=== PATIENT | male | born 1985 | race Caucasian/White ===

== ENCOUNTER 2022-12-03 18:41 | Emergency (ER) | payer OTHER ==
--- NOTE | 2022-12-03 19:55 | RAD REPORT ---
EXAM DESCRIPTION: CT - Head Brain Wo Cont - 12/03/2022 7:41 pm CLINICAL HISTORY: HEADACHE COMPARISON: No comparisons TECHNIQUE: Noncontrast head CT images were obtained without IV contrast. Multiplanar reformats were generated and reviewed. All CT scans are performed using dose optimization technique as appropriate and may include automated exposure control or mA/KV adjustment according to patient size. FINDINGS: No intracranial hemorrhage, mass, or edema. Midline structures are unremarkable. Ventricular caliber overall within normal, although there is asymmetric size of the lateral ventricle s, larger on the right, likely of low clinical significance. Ruiz-white matter differentiation is preserved, without evidence of acute infarct. No abnormal extra- axial fluid collections. Mastoid air cells are well aerated. Right maxillary sinus mucous retention cyst. No acute bony findings. IMPRESSION: No evidence of an acute intracranial process.
[2022-12-03] MEDS ORDERED: ASPIRIN 81 MG CHEWABLE TABLET ONE (21:04)
[2022-12-03 21:12] LABS: Absolute Lymphocytes (CBC) 4.3 K/uL (0.7-4.9); Hematocrit 43.9 % (39.6-49.0); Lymphocytes % 42.3 % (15.3-44.8); MCV 81.5 fL (80-100); MPV 7.9 fL (7.6-11.3); Platelets 287 thou/uL (152-406); RBC Red Blood Cell Count 5.39 M/uL (4.33-5.43)
[2022-12-03 21:13] LABS: Protime INR 1.01
[2022-12-03 21:27] LABS: Albumin 3.9 g/dL (3.4-5.0); Bilirubin Direct 0.1 mg/dL (0-0.2); Bilirubin Indirect, Calculated 0.4 mg/dL (0.2-0.8); Bilirubin Total 0.5 mg/dL (0.2-1.0); Magnesium 2.1 mg/dL (1.6-2.4); Potassium 3.5 mEq/L (3.5-5.1); Protein, Total 7.9 g/dL (6.4-8.2); Troponin High Sensitivity 4.2 pg/mL (<58.9)
--- NOTE | 2022-12-03 21:45 | RAD REPORT ---
EXAM DESCRIPTION: Laura Single View12/03/2022 9:22 pm CLINICAL HISTORY: headache COMPARISON: CHEST PA AND LAT 2 VIEW dated 01/31/2013 TECHNIQUE: Portable AP view of the chest. FINDINGS: The lungs are clear. No pneumothorax or effusion. The cardiomediastinal contours are unrem arkable. IMPRESSION: No acute cardiopulmonary process.
--- NOTE | 2022-12-03 22:21 | RAD REPORT ---
EXAM DESCRIPTION: CT - Head angio - 12/03/2022 9:46 pm CLINICAL HISTORY: HEADACHE COMPARISON: Head Brain Wo Cont dated 12/03/2022; Neck Angio dated 12/03/2022 TECHNIQUE: Axial CT angiography images of the head was performed with multiplanar and maximum intens ity projection reconstructions. Images performed following intravenous administration of 95mL Isovue 370. All CT scans are performed using dose optimization technique as appropriate and may include automated exposure control or mA/KV adjustment according to patient size. FINDINGS: No evidence of large vessel occlusion. No evidence of aneurysm or dissection flap is detec ana. No flow-limiting stenosis or vascular malformation identified. Antegrade flow is seen in the vertebral arteries. The vertebral arteries are codominant. The visualized dural venous sinuses are grossly patent. IMPRESSION: No evidence of large vessel occlusion or flow-limiting stenosis.
--- NOTE | 2022-12-03 22:24 | RAD REPORT ---
EXAM DESCRIPTION: CT - Neck Angio - 12/03/2022 9:46 pm CLINICAL HISTORY: HEADACHE COMPARISON: No comparisons TECHNIQUE: Axial CT angiography images of the head was performed with multiplanar and maximum intens ity projection reconstructions. Images performed following intravenous administration of 95mL Isovue 370. All CT scans are performed using dose optimization technique as appropriate and may include automated exposure control or mA/KV adjustment according to patient size. Quantification of carotid stenosis, if any, is performed according to NASCET criteria. FINDINGS: A left aortic arch is identified with normal three vessel configuration of the great vesse ls. No significant flow abnormality is seen of the common carotid bilaterally. No significant stenosis is identified involving the cervical segments of both internal carotid arteri es. Normal flow is seen within both vertebral arteries. Mucous retention cyst in the base of the right maxillary sinus. IMPRESSION: No significant flow abnormality of the neck vessels is identified. CAROTID STENOSIS REFERENCE USING NASCET CRITERIA: % ICA stenosis = (1 - narrowest ICA diameter/diameter of distal cervical ICA) x 100. Mild - <50% stenosis. Moderate - 50-69% stenosis. Severe - 70-94% stenosis. Near occlusion - 95-99% stenosis. Occluded - 100% stenosis.
--- NOTE | 2022-12-03 22:35 | ER ---
Nurse's Notes [facility] Name: Bossman Farrell Age: 37 yrs Sex: Male : 1985 Arrival Date: 12/03/2022 Time: 18:41 Bed 5 Private MD: Diagnosis: Headache;Elevated blood-pressure reading, without diagnosis of hypertension;Weakness Presentation: 12/03 19:01 Chief complaint: Patient states: Went to eye doctor yesterday, told they saw what may nj1 look like a mini stroke. Woke up this morning with a headache "i just feel off". Coronavirus screen: Vaccine status: Patient reports receiving the 2nd dose of the covid vaccine. Ebola Screen: Patient denies travel to an Ebola-affected area in the 21 days before illness onset. Initial Sepsis Screen: Does the patient meet any 2 criteria? No. Patient's initial sepsis screen is negative. Does the patient have a suspected source of infection? No. Patient's initial sepsis screen is negative. Risk Assessment: Do you want to hurt yourself or someone else? Patient reports no desire to harm self or others. Onset of symptoms was December 03, 2022. 19:01 Method Of Arrival: Ambulatory [facility] 19:01 Acuity: AAKASH 3 nj1 Historical: - Allergies: 19:04 No Known Allergies; nj1 - PMHx: 19:04 None; nj1 - PSHx: 19:04 None; nj1 - Immunization history:: Client reports receiving the 2nd dose of the Covid vaccine. - Social history:: Smoking status: Patient denies any tobacco usage or history of. Screenin:42 [facility] ED Fall Risk Assessment (Adult) Score/Fall Risk Level 0 - 2 = Low Risk. Abuse jw7 screen: Denies threats or abuse. Denies injuries from another. Nutritional screening: No deficits noted. Tuberculosis screening: No symptoms or risk factors identified. Assessment: 22:41 General: Appears in no apparent distress. Behavior is calm, cooperative. General: jw7 Reports fatigue for. Pain: Denies pain. Neuro: Level of Consciousness is awake, alert, obeys commands, Oriented to person, place, time, situation. Respiratory: Respiratory effort is even, unlabored. Vital Signs: 19:01 BP 139 / 92; Pulse 73; Resp 18; Temp 98.1; Pulse Ox 99% ; Weight 81.65 kg; Height 5 ft. nj1 10 in. ; Pain 3/10; 22:03 BP 142 / 90; Pulse 71; Resp 16 S; Pulse Ox 98% on R/A; jw7 19:01 Body Mass Index 25.83 (81.65 kg, 177.8 cm) nj1 19:01 Pain Scale: Adult [facility] ED Course: 18:46 Patient arrived in ED. im 18:57 Ruth Robins FNP-C is PHCP. snw 18:57 Carlito Roth MD is Attending Physician. snw 19:04 Triage completed. nj1 19:04 Arm band placed on right wrist. nj1 19:43 CT Head Brain wo Cont In Process Unspecified. EDMS 20:40 Sandy Vazquez MD is Attending Physician. snw 20:40 Tucker Dye PA is PHCP. snw 20:55 Basic Metabolic Panel Sent. bc6 20:55 CBC with Diff Sent. bc6 20:55 LFT's Sent. bc6 20:55 Magnesium Sent. bc6 20:55 NT PRO-BNP Sent. bc6 20:55 PT-INR Sent. bc6 20:55 Troponin HS Sent. bc6 20:55 Inserted saline lock: 22 gauge in left wrist, using aseptic technique. Blood collected. bc6 21:24 XRAY Chest (1 view) In Process Unspecified. EDMS 21:29 Zeb Rodriguez, RN is Primary Nurse. rv 21:48 CT Head Angio In Process Unspecified. EDMS 21:[address] In Process Unspecified. EDMS 22:42 Bed in low position. Call light in reach. Side rails up X2. Provided Education on: jw7 discharge teaching. 22:42 No provider procedures requiring assistance completed. IV discontinued, intact, jw7 bleeding controlled, No redness/swelling at site. Pressure dressing applied. Administered Medications: 20:55 Drug: Aspirin PO Chewable Tablet 324 mg Route: PO; nj1 22:43 Follow up: Response: No adverse reaction jw7 Medication: 22:42 VIS not applicable for this client. jw7 Outcome: 22:34 Discharge ordered by . cp 22:42 Discharged to home ambulatory, with family. jw7 22:42 Condition: stable 22:42 Discharge instructions given to patient, Instructed on discharge instructions, follow jw7 up and referral plans. Demonstrated understanding of instructions, follow-up care. 22:43 Patient left the ED. jw7 Signatures: Dispatcher [employer] EDMS Ruth Robins, CAB STARTER-C CAB STARTER-Csnw Tucker Dye PA PA cp Vicente, Ronaldo, RN RN rv Manasa Parker RN RN jw7 Celine Geller 6 Sherri Perez RN RN nj1 Dafne Rivas
--- NOTE | 2022-12-03 22:35 | EDPHYS ---
Physician Documentation [facility] Name: Bossman Farrell Age: 37 yrs Sex: Male : 1985 Arrival Date: 12/03/2022 Time: 18:41 Bed 5 Private MD: ED Physician Sandy Vazquez HPI: 12/03 21:00 This 37 yrs old Male presents to ER via Ambulatory with complaints of General Weakness, cp stuttering, Headache. 21:00 The patient complains of pain to the top of head and forehead. The patient describes cp the headache as aching, waxing and waning. Onset: The symptoms/episode began/occurred this morning, upon awakening. 21:00 Headache History: Denies prior headaches. Associated signs and symptoms: Pertinent cp positives: reports "just don't feel like myself". Patient is a 37-year-old male with no significant past medical history who presents to the emergency department with complaints of a headache and pressure that started upon awakening this morning. Patient reports he just does not feel like himself but denies feeling ill with cough congestion or sore throat. Patient denies any numbness and/or weakness and denies any change in vision. Patient was concerned about the headache because she had an eye exam performed yesterday and was told by the eye doctor that the examination of his retina showed possible signs of a stroke but patient denies any history of stroke like symptoms. Patient denies any change in vision. Historical: - Allergies: 19:04 No Known Allergies; nj1 - PMHx: 19:04 None; nj1 - PSHx: 19:04 None; nj1 - Immunization history:: Client reports receiving the 2nd dose of the Covid vaccine. - Social history:: Smoking status: Patient denies any tobacco usage or history of. ROS: 21:05 Constitutional: Negative for body aches, chills, fever, poor PO intake. cp 21:05 Eyes: Negative for injury, pain, redness, and discharge. cp 21:05 ENT: Negative for drainage from ear(s), ear pain, sore throat, difficulty swallowing, difficulty handling secretions. 21:05 Neck: Negative for pain with movement, pain at rest, stiffness. 21:05 Cardiovascular: Negative for chest pain, palpitations. 21:05 Respiratory: Negative for cough, shortness of breath, wheezing. 21:05 Abdomen/GI: Negative for abdominal pain, vomiting, diarrhea, constipation. 21:05 : Negative for urinary symptoms. 21:05 Neuro: Positive for headache, Negative for altered mental status, dizziness, numbness, syncope, weakness. 21:05 All other systems are negative. Exam: 21:10 Constitutional: The patient appears in no acute distress, alert, awake, cp non-diaphoretic, non-toxic, well developed, well nourished. 21:10 Head/Face: Normocephalic, atraumatic. cp 21:10 Eyes: Periorbital structures: appear normal, Pupils: equal, round, and reactive to light and accomodation, Extraocular movements: intact throughout, Conjunctiva: normal, no exudate, no injection, Sclera: no appreciated abnormality, Lids and lashes: appear normal, bilaterally. 21:10 ENT: External ear(s): are unremarkable, Ear canal(s): are normal, clear, TM's: dullness, bilaterally, Nose: is normal, Mouth: Lips: moist, Oral mucosa: pink and intact, moist, Posterior pharynx: is normal, airway is patent, no erythema, no exudate. 21:10 Neck: ROM/movement: is normal, is supple, without pain, no range of motions limitations, no meningismus, no nuchal rigidity. 21:10 Chest/axilla: Inspection: normal. 21:10 Cardiovascular: Rate: normal, Rhythm: regular, Edema: is not appreciated, JVD: is not appreciated. 21:10 Respiratory: the patient does not display signs of respiratory distress, Respirations: normal, no use of accessory muscles, no retractions, labored breathing, is not present, Breath sounds: are clear throughout, no decreased breath sounds, no stridor, no wheezing. 21:10 Abdomen/GI: Inspection: abdomen appears normal, Palpation: abdomen is soft and non-tender, in all quadrants. 21:10 Back: pain, is absent, ROM is normal. 21:10 Neuro: Orientation: to person, place \\T\\ time. Mentation: is normal, Cerebellar function: is grossly normal, Motor: moves all fours, strength is normal, Sensation: is normal, Gait: is steady, at a normal pace, without difficulty. Vital Signs: 19:01 BP 139 / 92; Pulse 73; Resp 18; Temp 98.1; Pulse Ox 99% ; Weight 81.65 kg; Height 5 ft. nj1 10 in. ; Pain 3/10; 22:03 BP 142 / 90; Pulse 71; Resp 16 S; Pulse Ox 98% on R/A; jw7 19:01 Body Mass Index 25.83 (81.65 kg, 177.8 cm) nj1 19:01 Pain Scale: Adult nj1 MDM: 19:02 Patient medically screened. snw 20:00 Differential diagnosis: cluster headache, cerebral vascular accident, hypertensive cp headache, migraine, sinusitis, subarachnoid bleed, subdural hematoma, tension headache. 22:33 Data reviewed: vital signs, nurses notes, lab test result(s), EKG, radiologic studies, cp CT scan, plain films. 22:33 I considered the following discharge prescriptions or medication management in the emergency department Medications were administered in the Emergency Department. See MAR. Counseling: I had a detailed discussion with the patient and/or guardian regarding the historical points, exam findings, and any diagnostic results supporting the discharge/admit diagnosis, lab results, radiology results, the need for outpatient follow up, a family practitioner, to return to the emergency department if symptoms worsen or persist or if there are any questions or concerns that arise at home. Response to treatment: the patient's symptoms have mildly improved after treatment, and as a result, I will discharge patient. 12/03 20:11 Order name: Basic Metabolic Panel; Complete Time: 22:13 snw 12/03 20:11 Order name: CBC with Diff; Complete Time: 22:13 snw 12/03 20:11 Order name: LFT's; Complete Time: 22:13 snw 12/03 22:31 Interpretation: Normal except: AST 12; GLOB 4.0; A/G 1.0. cp 12/03 20:11 Order name: Magnesium; Complete Time: 22:13 snw 12/03 20:11 Order name: NT PRO-BNP; Complete Time: 22:13 snw 12/03 20:11 Order name: PT-INR; Complete Time: 22:13 snw 12/03 20:11 Order name: Troponin HS; Complete Time: 22:13 snw 12/03 19:27 Order name: CT Head Brain wo Cont; Complete Time: 20:09 snw 12/03 22:31 Interpretation: Report reviewed. cp 12/03 20:11 Order name: XRAY Chest (1 view); Complete Time: 22:13 snw 12/03 20:11 Order name: CT Head Angio; Complete Time: 22:30 snw 12/03 20:11 Order name: Neck Angio CT; Complete Time: 22:30 snw 12/03 19:28 Order name: EKG; Complete Time: 19:28 snw 12/03 19:28 Order name: EKG - Nurse/Tech; Complete Time: 19:52 snw 12/03 20:11 Order name: IV Saline Lock; Complete Time: 20:54 snw 12/03 20:11 Order name: Labs collected and sent; Complete Time: 20:54 snw 12/03 20:11 Order name: O2 Per Protocol; Complete Time: 21:31 snw 12/03 20:11 Order name: O2 Sat Monitoring; Complete Time: 21:31 snw Administered Medications: 20:55 Drug: Aspirin PO Chewable Tablet 324 mg Route: PO; nj1 22:43 Follow up: Response: No adverse reaction jw7 Disposition: 12/04 06:42 STAFF ATTESTATION STATEMENT: I was immediately available onsite in the emergency sd2 department for consultation in the care of this patient. I did not see or examine this patient. Sandy Vazquez MD. Disposition Summary: 12/03/22 22:34 Discharge Ordered Location: Home cp Problem: new cp Symptoms: have improved cp Condition: Stable cp Diagnosis - Headache cp - Elevated blood-pressure reading, without diagnosis of hypertension cp - Weakness cp Followup: cp - With: Private Physician - When: 2 - 3 days - Reason: Recheck today's complaints Discharge Instructions: - Discharge Summary Sheet cp - General Headache Without Cause cp - Weakness cp - How to Take Your Blood Pressure, [id number] cp - Aspirin and Your Heart cp - DASH Eating Plan cp - Form - Blood Pressure Record Sheet cp Forms: - Medication Reconciliation Form cp - Thank You Letter cp - Antibiotic Education cp - Prescription Opioid Use cp - Patient Portal Instructions cp - Leadership Thank You Letter cp Signatures: Dispatcher [employer] EDRuth Cali FNP-C VP [employer]TEGR[employer]-Csnw Tucker Dye PA PA cp Sandy Vazquez MD MD sd2 Sherri Perez RN RN nj1 Manasa Parker RN jw7
[2022-12-03 23:01] VITALS: TEMP 98.1
[2022-12-03 23:04] VITALS: BP 142/90; O2SAT 98
--- NOTE | 2022-12-05 18:02 | EKG ---
Test Date: 2022-12-03 Test Time: 19:51:06 Soil Sampler: YUE MEASUREMENT RESULTS: Intervals: Rate: 68 KS: 124 QRSD: 110 QT: 400 QTc: 425 [place]: P: 62 KS: 124 QRS: 98 T: 16 INTERPRETIVE STATEMENTS: Normal sinus rhythm ST abnormality, possible digitalis effect Abnormal ECG No previous ECG available for comparison Electronically Signed On 12-05-22 17:57:44 CDT by Domenic Alcocer
== END 2022-12-03 22:43 | disposition home or self-care (01) ==
LOC: ER 18:41
DX: R53.1 Weakness (principal); R51.9 Headache, unspecified; R03.0 Elevated blood-pressure reading, without diagnosis of hypertension
CPT/HCPCS: 93005; 85025; 80048; 36415; 83735; 85610; 80076; 84484; 83880; 70450; 70496; 70498; 71045; 99284; Q9967